=== PATIENT | female | born 1970 | race Caucasian/White ===

== ENCOUNTER → 2016-12-22 | Outpatient (CLI) | payer OTHER ==
[~2016-12-22] MED LIST: IOPAMIDOL (ISOVUE 370) 100 ML BTL IV ONE
--- NOTE | 2016-12-22 14:19 | MR ---
MRI of the Brain (Without Contrast) at 1244 hours Clinical Indications: S06.0X1a, concussion with loss of consciousness, trauma. Comparison: None Technique: T1-weighted images were acquired axially and sagittally from the foramen magnum to the ve rtex. Axial fast inversion recovery, fast T2-weighted, and diffusion-weighted axial images were obta ined without contrast. Findings: The ventricles, cisterns, and sulci are normal without atrophy, hydrocephalus, midline deep ft, herniation, or epidural/subdural hematomas. No intracranial hemorrhage or masses. Diffusion-weigh tang sequence demonstrates no acute infarct. Cerebellar tonsils are in normal position. Pituitary glan d is normal in size. Normal signal flow-void in the superior sagittal sinus, basilar artery, and bila teral internal carotid arteries indicating patency. Paranasal sinuses and mastoid air cells are clear . No evidence of epidural or subdural hematomas. Impression: Normal MRI of the brain without contrast.
--- NOTE | 2016-12-22 16:45 | CT ---
CT Angiogram of the Head and Neck 1233 hours History: Previous skiing accident with subsequent vertigo and tenderness around the right eye. Persis tent headache and neck pain. Concussion with loss of consciousness. Visual field defect. (S06.0x1A, H 53.47, S06.9x1A). Technique: Spiral imaging was obtained from the aortic arch through the skull during the administrati on of 85 mL Isovue-370 IV contrast. The images were reviewed in multiple planes. Volume rendering was performed by me, as well. Dose reduction techniques were utilized. Findings: CT Angiogram Neck: The aortic arch has a normal contour. The great vessels off the aortic arch are no rmal in appearance. The common carotid artery has a normal contour bilaterally. The carotid bulb is n ormal in appearance without plaque formation. The ECA and ICA are normal without plaque formation or stenosis. The vertebral arterial system within the neck is normal in appearance without stenosis, as well. The origin of the vertebral artery is also normal bilaterally. There is no evidence of aneurys m or dissection. Images through the neck demonstrate no significant lymphadenopathy. A few small subcentimeter lymph n odes are seen. The musculature is symmetric. The submandibular glands and parotid glands are normal i n appearance bilaterally. CT Angiogram [place]: The distal ICA at the base of the brain has a normal appearance bilate rally without evidence of stenosis. No significant plaque formation is seen. There is normal branchin g into the anterior and middle cerebral arteries. The anterior communicating artery is normal in appe arance. There is no cutoff of flow or evidence of aneurysm. Tiny posterior communicating artery is se en bilaterally. The vertebrobasilar system demonstrates normal contrast enhancement without evidence of stenosis or a neurysm. There is normal branching into the posterior inferior cerebellar artery, as well as the supe rior cerebellar artery and posterior cerebral artery branches. Imaging through the brain demonstrates no evidence of intracranial hemorrhage, subdural collection, v ascular malformation, or evidence of cerebral infarction. Impression: Normal CT angiogram of the neck. Normal CT angiogram of the [place], as detailed above. Note: All calculations were performed using NASCET criteria.
== END ==
LOC: FIMAGING 11:55
PROVIDERS: ATTEND Family Medicine
DX: S06.0X1A Concussion with loss of consciousness of 30 minutes or less, initial encounter (principal); H53.47 Heteronymous bilateral field defects; M54.2 Cervicalgia; R51 Headache
CPT/HCPCS: Q9967